=== PATIENT | female | born 2000 | race Caucasian/White ===

== ENCOUNTER 2024-08-22 10:48 | Outpatient (AMB) | payer OTHER, SELFPAY ==
--- NOTE | 2024-08-22 10:49 | MHC.PC.OV ---
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 Intake Note: pt is here to est care, requesting a pe Histology Aide Required: No Accompanied by: Self / Same As Patient Allergies No Known Allergies Allergy (Verified 08/22/24 11:09) Medication List - Last Reconciled 08/22/24 by Maryjane Vázquez, [facility] desog-e.estradiol/e.estradiol 0.15-0.02 mgx21 /0.01 mg x 5 (Lioiva (28)) tabs PO DAILY Tobacco use date assessed: 08/22/24 Dental Screening Dental Screen Date: 08/22/24 Did you have a dental visit in the last 12 months?: Yes Did you have a dental problem in the last 6 months where you did not have access to dental care?: No Was dental information given to patient?: Patient has dentist HPI HPI Comments History of Present Illness Details 24 y/o F with hx of achilles tendinitis, recurrent strep, otitis, sinusitis seasonal allergies, deviated septum, family hx of hyperlipidemia, MARY s/p R hip surgery 2016 FMHx: Dad HLD, PGM&F HLD, 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 She reports a long-standing history of sinus-related issues, which she attributes to her allergic rhinitis. The sinusitis occurs frequently, often accompanied by either ear infections or streptococcal pharyngitis. Several weeks ago, she experienced blocked ears, managed conservatively at home. A prior CT scan revealed a moderately deviated nasal septum, though surgical intervention was not pursued at the time. Past medical interventions include an unidentified injection which resulted in a decrease in sinus infections for a year. The patient expresses frustration with the frequency of infections and feels conventional therapies like intranasal corticosteroids (Flonase) have been inadequate. The patient has a history of recurrent otitis media as a child, without having undergone tympanostomy tube placement, despite frequent ear infections. Her records indicate five ear infections within one year during childhood. There is no history of allergy immunotherapy despite confirmed allergies to leaves and mold. Health Maintenance - Pap smear conducted in May 2022, with normal results. - Flu vaccination received in mid-June. - Tetanus vaccination within the last 10 years. - Recent eye exam performed in March. - Complete annual lab assessments; no current need for additional labs noted. Social History - woman. 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 - Running is a stress-relief activity; previously had exercise-induced disordered eating but now reports a healthy relationship with exercise. Review of Systems - Allergic/Immune: Reports allergic reactions to common allergens like leaves and mold. - Psychology: Reports anxiety with a MARY score of 9; Denies depression, suicidal ideation. Hx of anorexia. Never been on meds. Never hospitalized. Denies SI/HI. Open to counseling. - Gastrointestinal: Denies any changes in bowel or bladder function. Discussion Notes Recurrent sinusitis likely due to the combination of chronic allergic rhinitis and deviated nasal septum was discussed. Although previous use of Flonase provided insufficient symptom control, the potential benefits, risks, and long-term outlook of surgical options for septal deviation were reviewed. Referral for further ENT evaluation was suggested. Compliance with routine health screenings, from Pap smears to vaccinations, was confirmed. The impact of her anxiety disorder and previous history of anorexia nervosa were explored regarding their current clinical significance. Reinforcement of counseling has been recommended, taking insurance considerations into account to facilitate a seamless care transition. Plan The patient's primary medical issues include recurrent sinusitis in the context of allergic rhinitis and a deviated nasal septum, manageable through both surgical and non-surgical means, necessitating further ENT specialist referral. For allergic rhinitis and chronic sinusitis, intranasal corticosteroids had been prescribed though currently not used effectively. I will be facilitating a referral to the ENT group in [place], which offers timely access for evaluation and potential intervention. The subsequent mental health evaluation for anxiety disorder, previously untreated pharmacologically, recommends engagement with a counseling professional at [facility]. The patient's commendable health maintenance allows for reduced frequency of assessments. I encourage continued vigilance with self-care, including immunization, exercise, and stress management, ensuring her anxiety remains manageable. Patient was informed and verbally consented to the use of an ambient scribe for clinic note documentation during this visit. RTO 1 YEAR CPE, SOONER PRN PFSH Surgical History (Updated 08/22/24 @ 10:55 by Catrachito Montero CMA) Status post hip surgery Family History (Updated 08/22/24 @ 10:59 by Catrachito Montero CMA) Mother No problems noted. 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 1. Little interest or pleasure in doing things: not at all 2. Feeling down, depressed, or hopeless: not at all 3. Trouble falling or staying asleep, or sleeping too much: not at all 4. Feeling tired or having little energy: not at all 5. Poor appetite or overeating: not at all 6. Feeling bad about yourself - or that you are a failure or have let yourself or your family down: not at all 7. Trouble concentrating on things, such as reading the newspaper or watching television: not at all 8. Moving or speaking so slowly that other people could have noticed. Or the opposite - being so fidgety or restless that you have been moving around a lot more than usual: not at all 9. Thoughts that you would be better off or of hurting yourself in some way: not at all Total score: 0 Depression Screening Interpretation: Negative Depression Screening Done: Yes 38861 - PHQ-9 Billing: Yes Source: Developed by Drs. Brenton Georges, Darlene Lazaro, Leon Toscano and colleagues, with an educational contreras from [employer]. Thrive Questionnaire Date Thrive assessed: 08/22/24 I am a: Patient What is your living situation today?: I have a steady place to live Within the past 12 months, did the food you bought not last and you didn't have the money to get more?: Never true Within the past 12 months, did you worry whether your food would run out before you got money to buy more?: Never true Do you have trouble paying for medicines?: No Do you have trouble getting transportation to medical appointments?: No Do you have trouble paying your heating and electricity bill?: No Do you have trouble taking care of your child, family member or friend?: No Do you have trouble with day-to-day activities such as bathing, preparing meals, shopping, managing finances, etc.?: I choose not to answer this question Are you currently unemployed and looking for a job?: No Are you interested in more education?: No Please select the resources that you would like help with: None Currently or been in a relationship where the following occur: No concerns reported THRIVE Score: 0 AUDIT C Alcohol Use Questionnaire (AUDIT-C) 1. How often do you have a drink containing alcohol?: 2-4 times a month 2. How many drinks containing alcohol do you have on a typical day when you are drinking?: 3 or 4 3. How often do you have six or more drinks on one occasion?: Less than monthly Total Score: 4 Score Reviewed/Action Taken: Yes MARY-7 AMB Questionnaire MARY-7 Date MARY - 7 assessed: 08/22/24 Feeling nervous, anxious, or on edge: 2 = More than half the days Not being able to stop or control worryin = More than half the days Worrying too much about different things: 2 = More than half the days Trouble relaxin = Several days Being so restless that it is hard to sit still: 1 = Several days Becoming easily annoyed or irritable: 1 = Several days Feeling afraid as if something awful might happen: 0 = Not at all Total MARY-7 score (0-4 normal; 5-9 mild; 10-14 moderate; 15-21 severe): 9 Source: Developed by Drs. Brenton Georges, Darlene Lazaro, Leon Toscano and colleagues, with an educational contreras from [employer]. MARY-7 Assessment Billing MARY-7 Assessment Tool: MARY-7 Assessment 98629 Physical exam (Primary Care) Vital Signs: Last Vital Signs Temp 97.9 F 08/22/24 10:53 Pulse 67 08/22/24 10:53 BP 102/66 08/22/24 10:53 Pulse Ox 98 08/22/24 10:53 BMI result Body Mass Index 22.3 Tobacco/Smoking Status: Tobacco use Status Tobacco use date assessed 08/22/24 08/22/24 10:51 Patient Tobacco Use Status Never used Tobacco 08/22/24 10:56 e-Cigarette/Vaping Use Never Used 08/22/24 10:56 PHQ-9: PHQ-9 Score PHQ-9: Total score 0 08/22/24 10:51 Depression Screening Interpretation: Negative Thrive Assessment: Date of Thrive Assessment Date Thrive assessed 08/22/24 08/22/24 10:51 Currently or been in a relationship where the following occur: No concerns reported Const Other: General: Well developed, well nourished, in no acute distress. Appears stated age. Head: Normocephalic, atraumatic. Eyes: Pupils are equal, round and reactive to light and accommodation. Conjunctivae are clear. Vision grossly normal. Ears: TMs clear AU, EACS WNL Nose: Patent, without discharge. Mouth: There are no ulcers or lesions noted. No inflammation, no post nasal drip, no plaques nor exudates. Neck: Supple, no adenopathy or thyromegaly. Lungs: Clear to auscultation bilaterally. No rales, rhonchi or wheeze noted. Good air flow in all nicole. Heart: Regular rate and rhythm. No murmurs, click, rubs or gallops are noted. Abdomen: Bowel sounds present in all quadrants. The abdomen is soft, nontender, with no masses or organomegaly noted. No hernias are noted. Musculoskeletal: Joints are nontender, without swelling, redness, or effusions. Range of motion is observed to be normal. Pulses: Peripheral pulses are equal and palpable bilaterally. Extremities: No clubbing, cyanosis nor edema is noted. Neurologic: Gait and station normal. Cranial Nerves 2-12 intact. Motor strength grossly symmetrical and intact. No sensory loss. Balance normal. Skin: No rashes, ulcers, or lesions noted. Turgor is good. Skin color is good. Hair and nails are without abnormalities. Psych: Normal eye contact, affect and mood appropriate, and normal interactions. Patient is alert and appropriate to context. Coding Level of Care Code New Pt Prev Care 18-39yr(81422 Diagnoses Encounter for general adult medical examination without abnormal findings Z00.00 Family history of hyperlipidemia Z83.438 Deviated septum J34.2 Recurrent sinusitis J32.9 Recurrent acute otitis media H66.90 Seasonal allergies J30.2 Recurrent tonsillitis J03.91 MARY (generalized anxiety disorder) F41.1 History of anorexia nervosa Z86.59 Additional Codes MARY-7 Assessment Billing - MARY-7 Assessment Tool: MARY-7 Assessment 62045 ([id number]) PHQ-9 - 89259 - PHQ-9 Billing: Yes ([id number]) Assessment & Plan Assessment & Plan (1) Encounter for general adult medical examination without abnormal findings: Code(s): Z00.00 - Encounter for general adult medical examination without abnormal findings Category: Medical (2) Family history of hyperlipidemia: Code(s): Z83.438 - Family history of other disorder of lipoprotein metabolism and other lipidemia Category: Medical (3) Deviated septum: Code(s): J34.2 - Deviated nasal septum Category: Medical (4) Recurrent sinusitis: Code(s): J32.9 - Chronic sinusitis, unspecified Category: Medical (5) Recurrent acute otitis media: Code(s): H66.90 - Otitis media, unspecified, unspecified ear Category: Medical (6) Seasonal allergies: Code(s): J30.2 - Other seasonal allergic rhinitis Category: Medical (7) Recurrent tonsillitis: Code(s): J03.91 - Acute recurrent tonsillitis, unspecified Category: Medical (8) MARY (generalized anxiety disorder): Code(s): F41.1 - Generalized anxiety disorder Category: Medical (9) History of anorexia nervosa: Code(s): Z86.59 - Personal history of other mental and behavioral disorders Category: Medical Plan . Orders: Referrals Ear/Nose/Throat Referral H66.90 - Otitis media, unspecified, unspecified ear, J03.91 - Acute recurrent tonsillitis, unspecified, J30.2 - Other seasonal allergic rhinitis, J32.9 - Chronic sinusitis, unspecified, J34.2 - Deviated nasal septum Counseling Referral F41.1 - Generalized anxiety disorder Patient Instructions: Patient Instructions - Continue use of Flonase as required for allergic rhinitis symptoms. - Anticipate referral call for ENT consultation, both in [place] and [place] as per insurance coverage. - Engage in regular counseling services as facilitated by [employer]. - Utilize healthcare portal for direct communication and appointment scheduling. Walk-In Care (Urgent Care): We Make it Easy Walk-in for urgent medical issues such as: ? Seasonal Allergies ? Insect Bites ? Cough ? Diarrhea ? Acute Asthma Attacks ? Back, Knee or Joint Pain ? Ear Infection ? Fever without a Rash ? Headaches ? Nausea ? Maceo Eye, Rash or Skin Irritation ? Sore Throat ? Sports Physicals ? Vomiting Most insurances are accepted. Patients do not need to be part of the [facility] to seek care at the walk-in clinic. Locations [facility] , [place] [address] ? [phone] [facility] Walk-In Care in [place] provides services to ages 18 and over. Open Thursday-Thursday: 8 a.m. to 5 p.m. and Thursday: 9 a.m. to 3 p.m.* *Hours may vary due to staffing availability. To confirm Walk-In Care hours in [place], please call [phone]. [address] [place] [address] ? [phone] [facility] Walk-In Care in [place] provides services to ages 12 and over. Open Thursday-Thursday: 8 a.m. to 5 p.m. Hours may vary due to staffing availability. To confirm Walk-In Care hours in [place], please call [phone]. LABORATORY SERVICES: [facility] Lab ? Primary Location [address] [place] [address] Thursday through Thursday 6:00 AM ? 5:00 PM Thursday 7:00 AM ? 11:00 AM* [phone] The [facility] Lab is centrally located near the front entrance of the [facility] for easy outpatient access. Convenient parking is provided for outpatients. *Hours may vary due to staffing availability. To confirm Laboratory hours for any location, please call [phone]. Offsite Location For your convenience, we offer offsite laboratory draw stations at the following locations: [address] [place] [address] ? [facility] [address], [address] Thursday through Thursday 7:30 AM ? 1:00 PM* [phone] *Hours may vary due to staffing availability. To confirm Laboratory hours for any location, please call [phone]. [place] [address] [facility] [place] Thursday through Thursday 6:00 AM ? 3:30 PM* Thursday 6:30 AM ? 3 PM* [phone] *Hours may vary due to staffing availability. To confirm Laboratory hours for any location, please call [phone]. [address] [facility] Thursday through Thursday 7:30 AM ? 4:00 PM* [phone] *Hours may vary due to staffing availability. To confirm Laboratory hours for any location, please call [phone]. [address] [facility] Thursday through 9:00 AM ? 4:00 PM* *Hours may vary due to staffing availability. To confirm Laboratory hours for any location, please call [phone]. Appointments are not necessary. Walk-ins are welcome. Like all the departments throughout the [facility], our Lab undergoes frequent reviews to ensure the quality and accuracy of test results, and our staff takes special pride in its status as a nationally accredited facility. Patient Portal: ONE PATIENT. ONE RECORD. BETTER CARE. [facility] has a fully integrated, cutting-edge mobile electronic health information system that has revolutionized the way we care for our patients and manage our organization. This system improves communication and coordination enabling us to provide safe, higher-quality care, and an overall positive experience for staff and patients. Our first priority, as always, is to deliver the highest quality care possible. The system is running in the background supporting that priority. This portal is for all [facility] services and practices. If you are experiencing any technical difficulties with enrolling or logging into the Patient Portal please complete the [facility] Patient Portal Technical Support Form. [facility] now offers a new secure on-line interactive tool for patients to review their health information ? ?Patient Portal. This interactive web portal will enable patients and their families to take an active role in their care by providing easy, secure access to their health information via the internet. The Patient Portal provides patients with instant access to their health information, including laboratory results, medications, allergies, demographic information, visit history, and more. In addition to managing their own care, parents and health care proxies with authorized consent will appreciate the ability to access the records of those individuals for whom they provide care. Please note: if you wish to gain access (Proxy) to another patient?s portal, you will be required to come to the Medical Records Department in person at [facility]. Both the patient giving proxy access and the proxy will need to provide photo identification and complete the appropriate authorization. The Patient Portal also allows track their appointments online. The [facility] Patient Portal also saves patients time by allowing them to submit updates to their demographic and contact information prior to their visits. Portal email notifications will also alert patients to any new activity on their portal, such as test results and new appointments. In order to initially enroll in the [facility] Patient Portal, you will need to enter some required information including the following: your [facility] Medical Record number your personal home email address name date of Please note: In order to enroll in the [facility] Patient Portal, we need to have your email address on file in your electronic medical record. ?The email address needs to be specific for one person (yourself) in order for your Portal enrollment to be successful. ?You can update your email address in person with our Registration staff when you are registering for a hospital visit. ?Otherwise, you will need to come to the Health Information Management (Medical Records) Department at [facility]. ?We are open from Thursday ? Thursday from 7:30 a.m. ? 4:30 p.m. ?You will be required to present a photo id. Once you have successfully enrolled in the Patient Portal, you will receive a one-time user id and password for the Portal, sent to your email address. ?This will allow you to log into the Patient Portal within 99 hrs and reset your own logon id and password, and define personal security questions. ?Once your permanent login and password have been set, you can log into the [facility] Patient Portal at any time via the blue button above or from the Portal Logon button on any page of the [facility] website. [facility] encourage all of our patients to enroll in Patient Portal as it presents a valuable opportunity for patients and their families to actively participate in their care and stay healthy Welcome to [facility]. ?We look forward to working with you. Health screenings for women You should visit your health care provider from time to time, even if you are healthy. The purpose of these visits is to: Screen for medical issues Assess your risk for future medical problems Encourage a healthy lifestyle Update vaccinations and other preventive care services Help you get to know your provider in case of an illness Information Even if you feel fine, you should still see your provider for regular checkups. These visits can help you avoid problems in the future. For example, the only way to find out if you have high blood pressure is to have it checked regularly. High blood sugar and high cholesterol levels also may not have any symptoms in the early stages. A simple blood test can check for these conditions. There are specific times when you should see your provider or receive specific health screenings. The [place] Preventive Services Task Force publishes a list of recommended screenings. Below are screening guidelines for women ages 18 to 39. BLOOD PRESSURE SCREENING Your blood pressure should be checked at least once every 3 to 5 years if: Your blood pressure is in the normal range (top number less than 120 mm Hg and bottom number less than 80 mm Hg) You don't have risk factors for high blood pressure Ask your provider if you need your blood pressure checked more often if: The top number is 120 to 129 mm Hg or the bottom number is 70 to 79 mm Hg You have diabetes, heart disease, kidney problems, are overweight, or have certain other health conditions You have a first-degree relative with high blood pressure You are Black You had high blood pressure during a If the top number is 130 mm Hg or greater or the bottom number is 80 mm Hg or greater, this is considered stage 1 hypertension. Schedule an appointment with your provider to learn how you can reduce your blood pressure. Watch for blood pressure screenings in your area. Ask your provider if you can stop in to have your blood pressure checked. BREAST CANCER SCREENING Experts do not agree about the benefits of breast self-exams in finding breast cancer or saving lives. Talk to your provider about what is best for you. A screening mammogram is not recommended for most women under age 40. Your provider may discuss and recommend mammograms, MRI scans, or ultrasounds if you have an increased risk for breast cancer, such as: A mother or sister who had breast cancer at a young age (most often starting screening earlier than the age the close relative was diagnosed) You carry a high-risk genetic marker CERVICAL CANCER SCREENING Cervical cancer screening should start at age 21 years unless your provider advises otherwise. After the first test: Women ages 21 through 29 should have a Pap test every 3 years. Exoprts do not agree on whether HPV testing is recommended for this age group. Women ages 30 through 65 should be screened with either a Pap test every 3 years or the HPV test every 5 years or both tests every 5 years (called cotesting ). Women who have been treated for precancer (cervical dysplasia) should continue to have Pap tests for 20 years after treatment or until age 65, whichever is longer. If you have had your uterus and cervix removed (total hysterectomy), and you have not been diagnosed with cervical cancer or precancer (high grade cervical neoplasia), you do not need cervical cancer screening. CHOLESTEROL SCREENING Cholesterol screening should begin at: Age 45 for women with no known risk factors for coronary heart disease Age 20 for women with known risk factors for coronary heart disease Repeat cholesterol screening should take place: Every 5 years for women with normal cholesterol levels More often if changes occur in lifestyle (including weight gain and diet) More often if you have diabetes, heart disease, kidney problems, or certain other conditions DIABETES SCREENING You should be screened for diabetes starting at age 35 and then repeated every 3 years if you have no risk factors for diabetes. Screening may need to start earlier and be repeated more often if you have other risk factors for diabetes, such as: You have a first degree relative with diabetes. You are overweight or have obesity. You have high blood pressure, prediabetes, or a history of heart disease. Screening for diabetes should be done if you are planning to become and you are overweight and have other risk factors such as high blood pressure. DENTAL EXAM Go to the dentist once or twice every year for an exam and cleaning. Your dentist will evaluate if you need more frequent visits. EYE EXAM Have an eye exam every 5 to 10 years before age 40. If you have vision problems, have an eye exam every 2 years or more often if recommended by your provider. You should have an eye exam that includes an examination of your retina (back of your eye) at least every year if you have diabetes. IMMUNIZATIONS Commonly needed vaccines include: Flu shot: get one every year. COVID-19 vaccine: ask your provider what is best for you. Tetanus-diphtheria and acellular pertussis (Tdap) vaccine: have one at or after age 19 as one of your tetanus-diphtheria vaccines if you did not receive it as an adolescent. Tetanus-diphtheria: have a booster (or Tdap) every 10 years. Varicella vaccine: receive 2 doses if you never had chickenpox or the varicella vaccine. Hepatitis B vaccine: receive 2, 3, or 4 doses, depending on your exact circumstances. Measles, mumps, and rubella (MMR) vaccine: receive 1 to 2 doses if you are not already immune to MMR. Your provider can tell you if you are immune. Ask your provider about the human papillomavirus (HPV) vaccine if: You have not received the HPV vaccine in the past You have not completed the full vaccine series (you should catch up on this shot) Ask your provider if you should receive other immunizations if you have certain health problems that increase your risk for some diseases such as pneumonia. INFECTIOUS DISEASE SCREENING Women who are sexually active should be screened for chlamydia and gonorrhea up until age 25. Women 25 years and older should be screened for chlamydia and gonorrhea if at high risk. Screening for hepatitis C: All adults ages 18 to 79 should get a one-time test for hepatitis C. people should be screened at every . Screening for human immunodeficiency virus (HIV): All people ages 15 to 65 should get a one-time test for HIV. Depending on your lifestyle and medical history, you may also need to be screened for infections such as syphilis and HIV, as well as other infections. PHYSICAL EXAM All adults should visit their provider from time to time, even if they are healthy. The purpose of these visits is to: Screen for disease Assess your risk of future medical problems Encourage a healthy lifestyle Update your vaccinations and other preventive care services Maintain a relationship with a provider in case of an illness Your height, weight, and BMI should be checked at every exam. During your exam, your provider may ask you about: Depression and anxiety Diet and exercise Alcohol and tobacco use Safety issues, such as using seat belts, smoke detectors, and intimate partner violence Your medicines and risk for interactions SKIN SELF-EXAM Your provider may check your skin for signs of skin cancer, especially if you're at high risk, such as if you: Have had skin cancer before Have close relatives with skin cancer Have a weakened immune system OTHER SCREENING Talk with your provider about colon cancer screening if you have a strong family history of colon cancer or polyps, or if you have had inflammatory bowel disease or polyps yourself. Routine bone density screening of women under 40 is not recommended.
[2024-08-22 10:53] VITALS: BP 102/66; PULSE 67; TEMP 36.6; O2SAT 98; BMI 22.3
== END 2024-08-22 11:33 | disposition home or self-care (01) ==
PROVIDERS: PCP Nurse Practitioner Family; Visit Provider Nurse Practitioner Family
DX: Z00.00 Encounter for general adult medical examination without abnormal findings (principal); Z83.438 Family history of other disorder of lipoprotein metabolism and other lipidemia; J34.2 Deviated nasal septum; J32.9 Chronic sinusitis, unspecified; H66.90 Otitis media, unspecified, unspecified ear; J30.2 Other seasonal allergic rhinitis; J03.91 Acute recurrent tonsillitis, unspecified; F41.1 Generalized anxiety disorder; Z86.59 Personal history of other mental and behavioral disorders

== ENCOUNTER → 2024-08-22 10:48 | Outpatient (BNVA) | payer OTHER, SELFPAY | PROVIDERS: PCP Nurse Practitioner Family; Visit Provider Nurse Practitioner Family | DX: Z00.00 Encounter for general adult medical examination without abnormal findings (principal); J34.2 Deviated nasal septum; J32.9 Chronic sinusitis, unspecified; H66.90 Otitis media, unspecified, unspecified ear; J30.2 Other seasonal allergic rhinitis; J03.91 Acute recurrent tonsillitis, unspecified; F41.1 Generalized anxiety disorder; Z86.59 Personal history of other mental and behavioral disorders; Z83.438 Family history of other disorder of lipoprotein metabolism and other lipidemia | CPT/HCPCS: 96127 ==